=== PATIENT | male | born 1955 | race Caucasian/White ===

== ENCOUNTER 2022-04-20 07:53 | Day surgery (SDC) | payer MEDICARE, BC, SELFPAY ==
[2022-04-20] VITALS (22 sets, daily range): BP systolic 94–156; BP diastolic 43–134; PULSE 44–72; RESP 16; TEMP 36.1–36.6; O2SAT 92–100; BMI 3228.8
[2022-04-20] MEDS: LACTATED RINGERS 1000 ML 1,000 ML 100 ML IV (08:30)
[2022-04-20] MEDS: CELECOXIB 200 MG CAPSULE PO ×2 (08:40→20:56)
[2022-04-20] MEDS: ACETAMINOPHEN 500 MG TABLET 1000 MG PO ×2 (08:40→18:46)
[2022-04-20] MEDS: OXYCODONE (CR) 10 MG TAB.ER.12H PO (08:40)
[2022-04-20] MEDS: SODIUM CHLORIDE 0.9 % (FLUSH) 10 ML SYRINGE IVF (09:02)
[2022-04-20] MEDS: fentaNYL 100 MCG/2 ML inj IVP (09:57)
[2022-04-20] MEDS: MIDAZOLAM HCL 1 MG/ML inj IVP (09:57)
--- NOTE | 2022-04-20 09:59 | SUR.PREOP ---
TIME?OUT:?0956 PT/RN/MDA?VERIFICATION?OF?SURGICAL?SITE right knee,?PROCEDURE,?AND?CONSENT OBTAINED?PRIOR?TO?INVASIVE?PROCEDURE.
--- NOTE | 2022-04-20 10:11 | W.PM.NB ---
Nerve Block Nerve Block Time Seen by Provider: 10:00 Date Seen: 04/20/22 Type of block requested by surgeon for post-operative analgesia: adductor canal Side: right Time out performed: Yes Verification of patient name: Yes Verification of date of : Yes Site marking: site marked Name of person performing procedure: Haim Davidson Assistants, if any: Gwen Gregorio Continuous monitoring Was continuous monitoring of O2 sat, B/P, human resources project coordinator, recorded every 15 minutes?: Yes Procedure Checklist: sterile prep, needles and gloves Ultrasound guided. Images saved: Yes Medications given in 5ml increments after negative aspiration: Ropivicaine %: 0.5 mL: 20 Needle gauge: 20 Decadron (mg): 10 Precedex (mcg): 25 Patient tolerated procedure well: Yes Additional comments: injected in 5ml increments after negative aspiration Block Charges Block Charge (with Pro Fee): Femoral Nerve Use of Ultrasound Machine for Block: Yes- US Guidance/pain block
--- NOTE | 2022-04-20 10:12 | W.PM.NB ---
Nerve Block Nerve Block Time Seen by Provider: 10:00 Date Seen: 04/20/22 Type of block requested by surgeon for post-operative analgesia: geniculars Side: right Time out performed: Yes Verification of patient name: Yes Verification of date of : Yes Site marking: site marked Name of person performing procedure: Haim Davidson Continuous monitoring Was continuous monitoring of O2 sat, B/P, director of cardiac cath lab, recorded every 15 minutes?: Yes Procedure Checklist: sterile prep, needles and gloves Ultrasound guided. Images saved: No Medications given in 5ml increments after negative aspiration: Ropivicaine %: 0.5 mL: 10 Needle gauge: 25 Patient tolerated procedure well: Yes Block Charges Block Charge (with Pro Fee): Genicular Nerve Block
--- NOTE | 2022-04-20 11:58 | CRLHL7_ITS ---
For Patients: As a result of the Cures Act, medical imaging exams and procedure reports are released immediately into your electronic medical record. You may view this report before your referring provider. If you have questions, please contact your health care provider. INDICATION: Postoperative right total knee arthroplasty, Post operative total knee arthroplasty TECHNIQUE: Knee radiograph 2 views right COMPARISON: None FINDINGS: Bone: No acute fractures or aggressive bone lesions are identified. Joint: The patient is status post a total knee arthroplasty with patellar resurfacing. No significant knee effusion is seen. Soft tissue: Anterior skin, subcutaneous gas and joint gas are present from recent surgery. No radiopaque foreign bodies are seen. IMPRESSION: 1. There is an unremarkable postoperative appearance of the knee arthroplasty. Prelim Report By Dr. Wolfgang Anne @ 04/20/2022 2:54:42 PM ADDENDUM Dictated by: Wolfgang Anne MD @ 04/20/2022 14:54:59 (Electronically Signed)
--- NOTE | 2022-04-20 12:00 | PM.ORPRC ---
Procedure Note Date of procedure: 04/20/22 Procedure: SURGEON: Jacques Simpson MD ROLLOFF TRUCK DRIVER: NICOLAS Nichole PREOPERATIVE DIAGNOSIS: Right knee osteoarthritis POSTOPERATIVE DIAGNOSIS: Right knee osteoarthritis NAME OF OPERATION: Right total knee arthroplasty ANESTHESIA: Spinal ESTIMATED BLOOD LOSS: 0 mL COMPLICATIONS: None SPECIMENS: None DRAINS: None PREOPERATIVE ANTIBIOTICS: Ancef 2 grams IMPLANTS: 1. J&J Attune # 7 posterior stabilized femur 2. # 7 fixed-bearing tibia 3. # 7 posterior stabilized, 5 mm fixed-bearing polyethylene 4. 41 patella INDICATIONS: The patient is a 66-year-old male with a longstanding history of severe, unrelenting right knee pain secondary to end-stage (grade IV) right knee osteoarthritis. Despite appropriate nonoperative management, including activity modification, anti-inflammatories, [id number] pain medication, bracing, physical therapy, and injections they continue to have pain and disability. Operative intervention was offered. The risks, benefits and expected outcomes were discussed in detail. These included but were not limited to: Infection, bleeding, injury to blood vessel or nerve, venous thromboembolism. All questions were answered to their satisfaction. Use of an librarian assistant was necessary throughout the case for patient positioning and safety, soft tissue retraction, and closure. PROCEDURE: Spinal anesthesia was administered. The patient was placed supine on the operating table. The librarian assistant made sure the patient was positioned appropriately. The lower extremity was prepped and draped in the usual sterile fashion. The limb was exsanguinated with the Terence bandage. The pneumatic tourniquet was inflated to 300 mmHg. A standard anterior incision was made with the knee in flexion. Subcutaneous dissection was sharply taken through fascial layer #1. Full-thickness medial and lateral flaps were elevated. The librarian assistant retracted the soft tissues and protected them throughout the case. A standard medial parapatellar approach was made. The patella was everted. The infrapatellar fat pad was preserved. The menisci and cruciate ligaments were sharply d?brided. Marginal osteophytes were d?brided with the rongeur. The drill was used to penetrate the femoral canal. The canal was aspirated and irrigated with pulse lavage. The intramedullary femoral guide was placed for a 5-degree valgus cut, removing 12 mm off the distal femur. The saw was used to make the cut. Whitesides line and the trans epicondylar axis were marked. The femoral sizing guide was pinned onto the distal femur. Three degrees of external rotation nicely parallels the transepicondylar axis. Pins were placed for posterior referencing. The four-in-one cutting guide was pinned onto the distal femur. The anterior, posterior, and chamfer cuts were made. The librarian assistant protected the collateral ligaments. The box cutting guide was pinned. The box cuts were made. The boxed trial was placed and was an excellent fit. Drill holes for the lugs were made. Attention was then turned to the proximal tibia. The extramedullary tibial guide was placed for a neutral varus/valgus cut with 5 degrees of posterior slope, removing 2 mm based off the medial tibial surface. The librarian assistant protected the collateral ligaments and the neurovascular bundle. The saw was used to make the cut. Trial components were placed. The knee was nicely balanced in both flexion and extension. The trial components were removed. The tray was placed in appropriate rotation, parallel to our tibial cutting pins. It was pinned by the librarian assistant and the drill and the punch were used. The tray was removed. The punch was used again. We placed a bone plug in the femoral canal. Attention was then turned to the patella. [place] patellar thickness was 19.5 mm. The lobster claw resection guide was used with the 7.5 mm reshma. The saw was used to make the cut on top of the guide. This gave us a flat, starting surface peripherally. We then freehand cut the patella to get to the depth of central defect and leave 15 mm of [place] patella. Drill holes were made by the librarian assistant. The trial was placed and was an excellent fit. Cancellous surfaces were irrigated with pulse lavage and thoroughly dried by the librarian assistant. We cemented the tibial component, then the femoral component. We impacted the 5 mm polyethylene onto the tibial tray. The knee was brought into full extension. We then cemented the patellar component. Excessive cement was removed. The cement was allowed to harden. The knee was taken through a range of motion and was found to be nicely balanced in both flexion and extension. The patella tracks centrally. The librarian assistant did a three minute dilute Betadine solution soak. The librarian assistant irrigated the wound with 3 liters of normal saline via pulse lavage. The librarian assistant reapproximated the extensor mechanism with #1 Vicryl in an interrupted [id number] fashion. The librarian assistant then ran the extensor mechanism with a #1 PDO Stratafix. The librarian assistant closed the subcutaneous tissues with a 3-0 Stratafix and the skin with a running 3-0 Stratafix in a subcuticular fashion. Glue was used to seal the skin. The librarian assistant placed a dry dressing, KEVIN stocking, and Polar Care. Sponge and needle counts were correct x2. The patient tolerated the procedure well. There were no apparent complications. They were carefully transferred to the hospital bed and taken to the postanesthesia care unit in satisfactory condition. PLAN: The patient will be mobilized with physical therapy. Aspirin will be used for DVT prophylaxis. They will be discharged to home once medically appropriate.
--- NOTE | 2022-04-20 12:44 | W.ANESCHARGE ---
Anesthesia Charges Start Date/Time Anesthesia Start Date: 04/20/22 Anesthesia Start Time: 10:10 Stop Date/Time Anesthesia Stop Date: 04/20/22 Anesthesia Stop Time: 12:38 Summary Emergency: No
[2022-04-20] MEDS: LACTATED RINGERS 1000 ML 1,000 ML 75 ML IV (15:02)
[2022-04-20] MEDS: OXYCODONE 5 MG TABLET PO ×2 (16:05→18:46)
[2022-04-20] MEDS: CEFAZOLIN 1 GM in 0.9 % SODIUM CHLORIDE Mini-bag 100 ML IVPB (16:06)
--- NOTE | 2022-04-20 16:51 | PC.NURSE ---
Pt arrived via hospital bed to Room 258 from PACU s/p RTKA by Dr. Simpson @ 1301 pm. Please see initial assessment from PACU and post op VS per routine. Bed locked in low position with bed alarm engaged. Pt smiling and cooperative, denies pain, bilateral knee high teds, plexipulses, cryocuff to site, R knee mepilex dressing is CDI. Pt is developmentally delayed, he watched TREY on TV until his parents Reji and Eli arrived. Post op teaching done with parents, discussed post op goals and plan for d/c to their home when PT and OT completed/passed tomorrow. Plan IV ATB and ortho PA visit in am. Pt tolerated 100% of CL tray. Advanced to regular diet for dinner. Report to Elisa López RN for evening shift.
--- NOTE | 2022-04-20 17:10 | PM.IMCN1 ---
Date of Consult Patient: Jeff Patient Consult date: 04/20/22 Requesting Physician: Orthopedics Primary Care Provider: Preet Noble MD Consult Narrative Reason for consult: Assist with postoperative management of underlying medical conditions Narrative: Manuel Ruano is a 66 year old man who presents for an elective right total knee arthroplasty due to unrelenting pain despite nonsurgical intervention efforts. Had a left total knee arthroplasty 2 years previously without complications. Notes pain is currently adequately controlled. Able to transfer from bed to chair and chair back to bed. He tells me he is hungry now. Patient known to have an unspecified intellectual disability. Interacts at a very basic level. Able to answer yes no questions for me. Likes to talk about the weather. Tells me about the rain and that whilst snow soon. Review of Systems Status of ROS: Reports: 10 or more systems reviewed and unremarkable except as noted in History and below Narrative: Denies chest heaviness, pressure, tightness, or pain. Denies syncope or near-syncope. Denies cough, dyspnea at rest, dyspnea with exertion, paroxysmal nocturnal dyspnea, orthopnea. Denies nausea, vomiting, abdominal pain, diarrhea, or constipation. Denies dysuria, urgency, frequency, or hematuria. Denies fevers, rigors, diaphoresis. Denies blood loss of any sort. Tells me he takes his medicines as prescribed. Aside from his pain and discomfort the affected right hip, he is usually able to do what he wants to without limitations. Has not had any weight gain or weight loss. Denies cold or heat intolerance. Denies focal motor neurologic deficits. Denies easy bleeding or bruising. Generally happy. PFSH PFS Medical History Chronic idiopathic thrombocytopenia Chronic leukopenia Osteoarthritis Osteoarthritis of right knee Overactive bladder Unspecified intellectual disabilities Urinary frequency Surgical History History of arthroplasty of left knee Hx of cataract extraction Hx of hernia repair Status post left knee replacement Family History Father Multiple myeloma Macular degeneration Brother Diabetes Social History Smoking Status: Never smoker How often do you have a drink containing alcohol: never AUDIT-C Alcohol total score: 0 Non-prescribed substance use: denies use Caffeine: Yes (coffee, 1-2 cups/day) service: No Meds Home Medications and Allergies Home Medications Medication Instructions Recorded Confirmed Type finasteride 5 mg tablet 5 mg PO DAILY 04/20/22 04/20/22 History oxybutynin chloride 10 mg 10 mg PO DAILY 04/20/22 04/20/22 History tablet,extended release 24 hr Allergies Allergy/AdvReac Type Severity Reaction Status Date / Time No Known Drug Allergies Allergy Unverified 04/20/22 08:18 Exam Narrative: Exam Narrative: Appears comfortable and in no acute distress. Generally happy and satisfied. Difficult to understand his speech, but for the most part understandable with great effort. Has an apraxia of speech. Mood and affect are congruent. Hearing and vision are grossly normal. Dentition in fair repair. Supple neck, midline trachea, normal thyroid, no JVD, hepatojugular reflux, or carotid bruits. No lymphadenopathy. Lungs clear to auscultation. Heart tones with regular rhythm. Abdomen with active bowel sounds, soft, nontender. Skin is intact. No focal motor neurologic deficits. Transfers from bed to chair and chair to bed. Const: Vital Signs, click to edit/add: Vital Signs - 24 hr 04/20/22 09:01 04/20/22 09:56 04/20/22 10:00 Temperature 97.0 F L Pulse Rate 56 L 56 L 50 L Pulse Rate [Pulse Oximeter] Respiratory Rate 16 16 16 Blood Pressure 112/87 119/80 110/77 Blood Pressure [Ri ght Arm] Pulse Oximetry 100 100 100 Oxygen Delivery Me thod Room Air Nasal Cannula Nasal Cannula Oxygen Flow Rate 3 3 04/20/22 12:35 04/20/22 12:40 04/20/22 12:45 Temperature 97.1 F L Pulse Rate 58 L 51 L 44 L Pulse Rate [Pulse Oximeter] Respiratory Rate 16 16 16 Blood Pressure 156/134 H 117/76 94/65 Blood Pressure [Ri ght Arm] Pulse Oximetry 92 99 99 Oxygen Delivery Me thod Room Air Room Air Room Air Oxygen Flow Rate 04/20/22 12:50 04/20/22 12:55 04/20/22 15:00 Temperature 97.4 F L Pulse Rate 55 L 53 L Pulse Rate [Pulse Oximeter] 63 Respiratory Rate 16 16 16 Blood Pressure 111/75 113/89 Blood Pressure [Ri ght Arm] Pulse Oximetry 96 100 Oxygen Delivery Me thod Room Air Room Air Oxygen Flow Rate 3 3 04/20/22 13:00 04/20/22 13:30 04/20/22 13:30 Temperature 97 F L 97 F L Pulse Rate 52 L Pulse Rate [Pulse Oximeter] 54 L 58 L Respiratory Rate 16 16 16 Blood Pressure Blood Pressure [Ri ght Arm] 107/71 117/73 112/79 Pulse Oximetry 99 98 Oxygen Delivery Me thod Room Air Room Air Room Air Oxygen Flow Rate 04/20/22 13:45 04/20/22 14:00 04/20/22 14:15 Temperature Pulse Rate Pulse Rate [Pulse Oximeter] 60 57 L 60 Respiratory Rate 16 16 Blood Pressure Blood Pressure [Ri ght Arm] 125/82 129/90 H 132/86 Pulse Oximetry 97 Oxygen Delivery Me thod Room Air Room Air Room Air Oxygen Flow Rate 04/20/22 14:30 Temperature Pulse Rate Pulse Rate [Pulse Oximeter] 60 Respiratory Rate 16 Blood Pressure Blood Pressure [Ri ght Arm] 133/90 H Pulse Oximetry 94 Oxygen Delivery Me thod Room Air Oxygen Flow Rate Documenting provider has reviewed patient's vital signs: yes Assessment and Plan Assessment and plan (1) Osteoarthritis of right knee: Status: Acute (2) Status post right knee replacement: Status: Acute (3) Unspecified intellectual disabilities: Status: Acute (4) Overactive bladder: Status: Acute (5) Chronic leukopenia: Status: Acute (6) Chronic idiopathic thrombocytopenia: Status: Acute Plan 1. Reviewed impression with patient. 2. Will follow with Orthopedic surgery outpatient is in hospital. 3. Recheck CBC tomorrow morning. 4. Restart his usual medications. 5. Agree with postoperative venous thromboembolism prophylaxis. 6. Agree is perioperative antibiotic prophylaxis.
[2022-04-20] MEDS: SENNOSIDES 1 TAB TABLET 2 TAB PO (20:57)
[2022-04-20] MEDS: ASPIRIN 81 MG TABLET EC PO (20:57)
[2022-04-20] MEDS: LORazepam 0.5 MG TABLET PO (21:04)
--- NOTE | 2022-04-20 21:19 | PC.NURSE ---
Shift Note [id number]: Pt friendly and cooperative. Moved to room 245 for safety, pt has done well following directions but does not use his call light. VS WNL and LS COA. Afebrile. Surgical dressing C,D,&I with cryocuff in place. States he is comfortable at this time, Browning-Espinosa face scale used to assess pain and Oxycodone given PRN. Moves well with assist x1 with GB and walker. Tolerating regular diet without difficulty.
[2022-04-21] MEDS: ACETAMINOPHEN 500 MG TABLET 1000 MG PO ×3 (00:14→13:19)
[2022-04-21] MEDS: CEFAZOLIN 1 GM in 0.9 % SODIUM CHLORIDE Mini-bag 100 ML IVPB ×2 (00:15→08:54)
[2022-04-21 01:05] VITALS: BP 140/87; PULSE 71; RESP 16; TEMP 36.6; O2SAT 100
[2022-04-21] MEDS: OXYCODONE 5 MG TABLET PO (05:18)
--- NOTE | 2022-04-21 05:52 | PC.NURSE ---
2300-700 Pt asleep upon arrival, cryo cuff in place, TEDs and Sequentials on. Pt was woken up for antibiotic infusion and tylenol. Unable to understand pt fully, but pt seems to want LR infusion off during the night. During hourly roundings around 5AM, pt was found kicking blankets off and trying to get comfortable. Pt seemed in pain with R knee and offered oxy and tylenol to which pt accepted. Noted to be sleeping after 45 mins of administration. Bed alarms on throughout night.
[2022-04-21 07:00] VITALS: BP 111/72; PULSE 63; PULSE 71; RESP 16; TEMP 36.4; O2SAT 97
[2022-04-21 07:13] LABS: Hematocrit 43.9 % (37.0-53.0); Hemoglobin* 14.3 gm/dL (13.5-17.5); Immature Granulocytes Abs Auto 0.02 K/uL (0.00-0.30); Immature Granulocytes Pct Auto 0.2 %; Lymphocytes Percent Auto 7.7 % (20-44); Mean Corpuscular HGB Conc 33 gm/dL (32-36); Mean Corpuscular Hemoglobin 30 pg (26-34); Mean Corpuscular Volume 91 fL (80-100); Monocytes Percent Auto 7.1 % (0.0-11.0); Platelet Count* 153 K/uL (140-440); Red Blood Count 4.85 m/uL (4.30-5.90); White Blood Count* 9.47 K/uL (4.50-11.00)
[2022-04-21 07:16] LABS: Slide Review Reflex No
[2022-04-21 07:21] LABS: Sodium* 136 mmol/L (135-149)
[2022-04-21 07:22] LABS: Potassium* 4.3 mmol/L (3.6-5.1)
[2022-04-21 07:24] LABS: INR 0.99 (0.91-1.10); Prothrombin Time 13.7 Seconds
[2022-04-21 07:25] LABS: Blood Urea Nitrogen* 17 mg/dL (7-30); Creatinine* 0.5 mg/dL (0.5-1.5); Est. Creatinine Clearance* 76.04; Estimated Glomerular Filt Rate 112 ml/min
--- NOTE | 2022-04-21 08:32 | PM.ORPN ---
Subjective Subjective Time Seen by Provider: 07:00 Date Seen: 04/21/22 Principal diagnosis: Status post right total knee arthroplasty Interval history: Manuel is comfortable this morning. He does not describe pain. Ortho Exam Narrative Exam Narrative: Alert and conversive. He talks about the weather. Difficult to understand his speech. Patient is in no acute distress. Converses without labored breathing. Hearing is grossly intact. Ambulates with a antalgic gait from the bed to the chair. He easily hops out of bed and gets into the recliner next to the bed. Minimal soft tissue edema about the right knee. Dressing is intact. No erythema or sign of infection. He is tall and therefore cannot stretch out his legs for his knee is in about 30? of flexion due to his foot hitting the end of the bed. He has moved to the chair to allow more knee flexion. I put a pillow for his heel to allow gravity to extend his knee. CMS intact right lower extremity. Const Vital Signs, click to edit/add: Vital Signs - 24 hr 04/20/22 09:01 04/20/22 09:56 04/20/22 10:00 Temperature 97.0 F L Pulse Rate 56 L 56 L 50 L Pulse Rate [Pulse Oximeter] Respiratory Rate 16 16 16 Blood Pressure 112/87 119/80 110/77 Blood Pressure [Right Arm] Pulse Oximetry 100 100 100 Oxygen Delivery Method Room Air Nasal Cannula Nasal Cannula Oxygen Flow Rate 3 3 04/20/22 12:35 04/20/22 12:40 04/20/22 12:45 Temperature 97.1 F L Pulse Rate 58 L 51 L 44 L Pulse Rate [Pulse Oximeter] Respiratory Rate 16 16 16 Blood Pressure 156/134 H 117/76 94/65 Blood Pressure [Right Arm] Pulse Oximetry 92 99 99 Oxygen Delivery Method Room Air Room Air Room Air Oxygen Flow Rate 04/20/22 12:50 04/20/22 12:55 04/20/22 15:00 Temperature 97.4 F L Pulse Rate 55 L 53 L Pulse Rate [Pulse Oximeter] 63 Respiratory Rate 16 16 16 Blood Pressure 111/75 113/89 Blood Pressure [Right Arm] Pulse Oximetry 96 100 Oxygen Delivery Method Room Air Room Air Oxygen Flow Rate 3 3 04/20/22 13:00 04/20/22 13:30 04/20/22 13:30 Temperature 97 F L 97 F L Pulse Rate 52 L Pulse Rate [Pulse Oximeter] 54 L 58 L Respiratory Rate 16 16 16 Blood Pressure Blood Pressure [Right Arm] 107/71 117/73 112/79 Pulse Oximetry 99 98 Oxygen Delivery Method Room Air Room Air Room Air Oxygen Flow Rate 04/20/22 13:45 04/20/22 14:00 04/20/22 14:15 Temperature Pulse Rate Pulse Rate [Pulse Oximeter] 60 57 L 60 Respiratory Rate 16 16 Blood Pressure Blood Pressure [Right Arm] 125/82 129/90 H 132/86 Pulse Oximetry 97 Oxygen Delivery Method Room Air Room Air Room Air Oxygen Flow Rate 04/20/22 14:30 04/20/22 18:46 04/20/22 15:30 Temperature 97.8 F 97.4 F L Pulse Rate Pulse Rate [Pulse Oximeter] 60 68 Respiratory Rate 16 16 Blood Pressure Blood Pressure [Right Arm] 133/90 H 123/78 Pulse Oximetry 94 98 Oxygen Delivery Method Room Air Room Air Oxygen Flow Rate 04/20/22 16:30 04/20/22 17:30 04/20/22 18:30 Temperature Pulse Rate Pulse Rate [Pulse Oximeter] 66 72 71 Respiratory Rate 16 16 16 Blood Pressure Blood Pressure [Right Arm] 126/80 139/43 L 129/73 Pulse Oximetry 99 96 98 Oxygen Delivery Method Room Air Room Air Room Air Oxygen Flow Rate 04/20/22 19:00 04/20/22 23:00 04/20/22 23:00 Temperature 97.8 F 97.8 F Pulse Rate Pulse Rate [Pulse Oximeter] 71 71 71 Respiratory Rate 16 16 16 Blood Pressure Blood Pressure [Right Arm] 140/87 H 140/87 H Pulse Oximetry 100 100 Oxygen Delivery Method Room Air Room Air Oxygen Flow Rate 3 04/21/22 01:05 04/21/22 07:00 04/21/22 07:00 Temperature 97.8 F 97.6 F Pulse Rate Pulse Rate [Pulse Oximeter] 71 63 71 Respiratory Rate 16 16 16 Blood Pressure Blood Pressure [Right Arm] 140/87 H 111/72 Pulse Oximetry 100 97 Oxygen Delivery Method Room Air Room Air Oxygen Flow Rate 3 Documenting provider has reviewed patient's vital signs: yes Assessment and Plan Assessment and plan (1) Osteoarthritis of right knee: Status: Acute (2) Status post right knee replacement: Problem details: 04/20/2022 Status: Acute Assessment and Plan: Plan for discharge is to home or retirement facility if they meet discharge criteria. Hospitalist states that Manuel may be going to a retirement facility. He is very mobile. Manuel is very independent normally and is this morning. DVT prophylaxis includes aspirin 81 mg twice daily x1 month, Kike stockings x1 month may remove for 1 hr per day, frequent ambulation Remove dressing in 1 week. Observe wound and phone Orthopedics with any questions or concerns Return to clinic in 1 week for a wound check Return to clinic in [address] Simpson Minimize narcotic use. Wean off and discontinue soon as possible. Activities as tolerated. No strenuous activity. Outpatient physical therapy as scheduled, physical therapy at retirement facility if he goes to a SNF. He will need frequent physical therapy to keep his range of motion, twice per week outpatient, daily at SNF. For he struggled with range of motion postop left knee replacement previously. Ice and elevate the operative extremity. No restriction on ice. (3) Unspecified intellectual disabilities: Status: Acute (4) Overactive bladder: Status: Acute (5) Chronic leukopenia: Status: Acute (6) Chronic idiopathic thrombocytopenia: Status: Acute
[2022-04-21] MEDS: ASPIRIN 81 MG TABLET EC PO (08:50)
[2022-04-21] MEDS: FINASTERIDE 5 MG TABLET PO (08:50)
[2022-04-21] MEDS: CELECOXIB 200 MG CAPSULE PO (08:50)
[2022-04-21] MEDS: SENNOSIDES 1 TAB TABLET 2 TAB PO (08:50)
--- NOTE | 2022-04-21 12:15 | PC.NURSE ---
Addendum entered by Simona Abarca RN 04/21/22 13:34: Pt. discharged to home accompanied by Mom and Dad at 1320. Original Note: Pt. is alert, pleasant and cooperative. Pt. has a speech impediment and is developmentally impaired but communicates will. Pt. denied having pain and did not need pain meds. Dressing to right knee is C/D/I. Pt. ambulated with PT and OT and tolerated activity well, up to chair for meals and SBA to BR. Pt. VSS. Pt. using cryocuff to right knee, bilateral TEDs. IV removed from left forearm intact. Discharge instructions given to mom and dad, they verbalized understanding. Belongings list and discharge instructions sheet signed by mom. Pt. will be discharged after mom and dad eats lunch. Will amend note with a time.
== END 2022-04-21 13:20 | disposition home or self-care (01) ==
LOC: OR 07:54 → MEDSURG 07:58
PROVIDERS: PCP Family Medicine; Visit Provider Orthopaedic Surgery
PROC: (CPT 27447; principal; 2022-04-20 10:15)
DX: M17.11 Unilateral primary osteoarthritis, right knee (principal); M25.561 Pain in right knee; F79 Unspecified intellectual disabilities; N32.81 Overactive bladder; D69.3 Immune thrombocytopenic purpura; D72.819 Decreased white blood cell count, unspecified
CPT/HCPCS: 27447; 01402; 36415; 64447; 64454; 73560; 76942; 82565; 84132; 84295; 84520; 85025; 85610; 97110; 97116; 97161; 97165; 97535; A9270; C1776; J0690; J1100; J2250; J2405; J2704; J2795; J3010; J7120